=== PATIENT | female | born 2000 | race Caucasian/White ===

== ENCOUNTER → 2020-10-28 08:57 | Outpatient (BNVA) | payer OTHER, SELFPAY | PROVIDERS: Family Provider Pediatrics Adolescent Medicine; PCP Pediatrics Adolescent Medicine; Visit Provider Family Medicine | DX: Z20.828 Contact with and (suspected) exposure to other viral communicable diseases (principal) | CPT/HCPCS: 87635 ==

== ENCOUNTER → 2021-05-08 14:25 | Outpatient (BNVA) | payer OTHER, SELFPAY | PROVIDERS: Family Provider Pediatrics Adolescent Medicine; PCP Pediatrics Adolescent Medicine; Visit Provider Nurse Practitioner Women's Health | DX: N91.2 Amenorrhea, unspecified (principal); N91.1 Secondary amenorrhea | CPT/HCPCS: 84146; 84439; 84443; 84702 ==

== ENCOUNTER → 2021-05-20 10:11 | Outpatient (BNVA) | payer OTHER, SELFPAY | PROVIDERS: Family Provider Pediatrics Adolescent Medicine; PCP Pediatrics Adolescent Medicine; Visit Provider Nurse Practitioner Women's Health | DX: N91.2 Amenorrhea, unspecified (principal) | CPT/HCPCS: 76830 ==

== ENCOUNTER → 2021-09-02 15:00 | Outpatient (BNVA) | payer OTHER, SELFPAY | PROVIDERS: Family Provider Pediatrics Adolescent Medicine; PCP Pediatrics Adolescent Medicine; Visit Provider Nurse Practitioner Women's Health | DX: Z01.419 Encounter for gynecological examination (general) (routine) without abnormal findings (principal); N91.1 Secondary amenorrhea; Z30.41 Encounter for surveillance of contraceptive pills | CPT/HCPCS: 88175 ==

== ENCOUNTER 2024-01-15 14:27 | Outpatient (CLI) | payer OTHER, BC, MEDICAID, SELFPAY ==
[2024-01-15 14:32] VITALS: BP 115/58; PULSE 68; TEMP 35.8
[2024-01-15 14:40] VITALS: RESP 16; BMI 32.9
[2024-01-15 14:50] VITALS: BP 115/58; RESP 16
== END 2024-01-15 15:00 | disposition home or self-care (01) ==
LOC: OPOB 14:28 → OBGYN 14:28
PROVIDERS: PCP Pediatrics Adolescent Medicine; Visit Provider Family Medicine
DX: O26.899 Other specified pregnancy related conditions, unspecified trimester (principal); Z3A.00 Weeks of gestation of pregnancy not specified; R10.9 Unspecified abdominal pain
CPT/HCPCS: 99211

== ENCOUNTER 2024-03-28 21:26 | Outpatient (CLI) | payer OTHER, BC, MEDICAID, SELFPAY ==
[2024-03-28] VITALS (9 sets, daily range): BP systolic 113–141; BP diastolic 59–81; PULSE 69–86; RESP 18; O2SAT 97–99; BMI 28.7
--- NOTE | 2024-03-28 23:30 | PC.NURSE ---
During assessment of pt expressive aphasia was noted, so extremity strength and smile was assessed. Both were WNL. 03/28/24 @ [id number]
[2024-03-29 06:54] LABS: Glucose Point of Care 102 mg/dL (70-110)
== END 2024-03-28 22:14 | disposition home or self-care (01) ==
LOC: OPOB 21:27 → OBGYN 21:30
PROVIDERS: PCP Pediatrics Adolescent Medicine; Visit Provider Family Medicine
DX: O26.899 Other specified pregnancy related conditions, unspecified trimester (principal); Z3A.00 Weeks of gestation of pregnancy not specified; H53.8 Other visual disturbances
CPT/HCPCS: 36416; 59025; 82962; 99211

== ENCOUNTER 2024-03-28 22:15 | Emergency (ER) | payer OTHER, BC, MEDICAID, SELFPAY ==
[2024-03-28 22:17] VITALS: BP 147/87; PULSE 83; RESP 18; TEMP 36.7; O2SAT 99; BMI 28.7
--- NOTE | 2024-03-28 22:24 | ECG_ITS ---
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 Measurements Intervals [place] Rate: 72 P: 61 ND: 137 QRS: 64 QRSD: 78 T: -2 QT: 387 QTc: 425 Interpretive Statements SINUS RHYTHM NONSPECIFIC ST & T-WAVE ABNORMALITY No previous ECG available for comparison Electronically Signed On 03-29-2024 18:07:43 CDT by Francisca Medina M.D. [id number] f
--- NOTE | 2024-03-28 22:24 | CTR_ITS ---
PROCEDURE INFORMATION: Exam: CT Head Without Contrast Exam date and time: 03/28/2024 10:32 PM Age: 23 years old Clinical indication: Stroke-like symptoms; Headache and speech disturbance; Additional info: Symptoms of acute stroke TECHNIQUE: Imaging protocol: Computed tomography of the head without contrast. Radiation optimization: All CT scans at this facility use at least one of these dose optimization techniques: automated exposure control; mA and/or kV adjustment per patient size (includes targeted exams where dose is matched to clinical indication); or iterative reconstruction. Other technique: STROKE PROTOCOL was implemented. COMPARISON: No relevant prior studies available. RADIATION DOSE METRICS: Total DLP (mGy-cm): 955.4 FINDINGS: Brain: There is no acute intracranial hemorrhage or abnormal extra-axial fluid collection identified. There is no intracranial mass effect or shift of midline structures. The ortiz-white differentiation is preserved throughout. There is no sulcal effacement. The basilar cisterns are open. Cerebral ventricles: No hydrocephalus or ventricular effacement. Paranasal sinuses: A mucous retention cyst is seen in the right sphenoid sinus. No air-fluid levels. Mastoid air cells: There is no mastoid effusion detected. Bones: No calvarial fracture or destructive osseous lesions are seen. Soft tissues: Unremarkable. CT/CT head thrombolytic [id number] IMPRESSION: No acute intracranial pathology identified by CT. ASSESSMENT: ASPECTS ([place] Stroke Program Early CT Score) is 10.
--- NOTE | 2024-03-28 22:28 | ED_ITS ---
HPI - Neuro Symptoms/Deficit 2 General: Chief Complaint: Neuro Symptoms/Deficit Stated Complaint: stroke alert Time Seen by Provider: 03/28/24 22:21 History of Present Illness: Dr. Dickey called over there was about the patient, a code stroke was called before the patient arrived over here. When the patient arrived over here she stated that approximately 9:00 she had blurred vision difficulty finding her words. She denied any slurring of her speech or unilateral type neurologic deficit. Patient is G1, P0 at approximately [address] Dickey is her blood pressure was a little high while she was over in OB, her blood pressure upon arrival here is 147/87. Patient denies any medicine other than vitamins, she is allergic to amoxicillin, denies any medical illness, hospitalization, surgeries. Patient says she is 100% back to normal now currently. Patient said during this episode she had a headache for about 5 minutes but the headache is gone. Patient states she gets very rare to occasional headache when she is dehydrated. Patient was checked out in OB prior to her arrival here in the ER. Time: 21:00 Last Observed Normal: 21:00 Location: speech History of same: No Quality: improving Relieving factors: time Exacerbating factors: none Context: sudden onset On Anticoagulants: No Treatments Prior to Arrival: none Review of Systems 2 General: Reports: 10 or more systems reviewed and unremarkable except in HPI and below PFSH ED 2 PFSH: Medical History No pertinent past medical history Neg hx: HTN, DM, thyroid, DVT/PE PCP: none Surgical History No pertinent past surgical history Family History Family/Other Cancer Maternal great aunt--Breast cancer-- dx age unknown Diabetes Maternal great aunt Grandmother Diabetes Hypertension Grandfather Hypertension Denies family history of Hyperlipidemia Family history of premature coronary artery disease Stroke NIH stroke score 2 NIHSS: Level Of Consciousness - 1a: 0 Level Of Consciousness Questions - 1b: Both Correct Level Of Consciousness Commands - 1c: Both Correct Best Gaze - 2: Normal Visual Garcia - 3: No Visual Loss Facial Palsy - 4: N ormal Motor Arm Right - 5: No Drift Motor Arm Left - 5: No Drift Motor Leg Right - 6: No Drift Motor Leg Left - 6: No Drift Limb Ataxia - 7: A bsent Sensory - 8: Normal Best Language - 9: No Aphasia Dysarthia - 10: Normal Extinction And Inattention - 11: 0 Score: Total Score: 0 Physical Exam 2 Const: COMMON NORMALS: no acute distress, average body habitus, patient oriented x3, no limitations, healthy appearing, alert and well nourished HENMT: COMMON NORMALS: normocephalic, atraumatic, hearing grossly normal bilaterally, external ears normal, Normal external nose present, moist oral mucous membranes and oropharynx normal HEAD & SCALP: normocephalic and atraumatic NOSE: Normal external nose present EXTERNAL EAR: Yes external ears normal Eye: COMMON NORMALS: Equal, round and reactive pupils present, EOMs intact bilaterally, conjunctivae normal and no scleral icterus CONJUNCTIVA: Yes conjunctivae normal PUPIL: Yes Equal, round and reactive pupils present Neck/C-Spine: COMMON NORMALS: full ROM, no lymphadenopathy, supple, no meningeal signs (No focal neurologic deficits), no JVD and Thyroid normal T HYROID: Thyroid normal Chest: COMMONS NORMALS: normal inspection of the chest and normal palpation of entire chest wall Resp: COMMON NORMALS: normal respiratory effort, No retractions, No use of accessory muscles and clear to auscultation bilaterally AUSCULTATION: clear to auscultation bilaterally Cardio: COMMON NORMALS: no JVD, regular rate, regular rhythm, S1 normal heart sound present, S2 normal heart sound present, No gallops present (Cardio), No clicks present (Cardio), No murmurs present (Cardio) and No rub (Cardio) R ATE: regular rate RHYTHM: regular rhythm HEART SOUNDS: S1 normal heart sound present and S2 normal heart sound present GI: COMMON NORMALS: Normal to inspection, nondistended, normoactive bowel sounds present, Soft to palpation, non-tender, No hepatosplenomegaly present and no masses PALPATION: Yes Soft to palpation and Yes No hepatosplenomegaly present OTHER: Gravid Neuro: COMMON NORMALS: patient oriented x3 SENSORIUM/ORIENTATION: Yes alert MENINGEAL SIGNS: Yes no meningeal signs (No focal neurologic deficits) Course 2 Vital Signs: Vital signs: Vital Signs Temperature 98.1 F 03/28/24 22:17 Pulse Rate 83 03/28/24 22:17 Respiratory Rate 18 03/28/24 22:17 Blood Pressure 147/87 03/28/24 22:17 Pulse Oximetry 99 03/28/24 22:17 Oxygen Delivery Me thod Room Air 03/28/24 22:17 MDM - Neuro Symptoms/Deficit Medical Decision Making Dr. Elam notified and informed of patient and NIH of 0 we will go ahead with the workup and get a noncontrasted CT scan of her head and the blood work EKGs urine analysis. Anticipate discharge home patient lives here in [place] with short-term follow-up with Dr. Dickey patient has an appointment already scheduled in approximately 3 days for follow-up with Dr. Dickey. Lab work including blood, urinalysis, head CT, EKG were all discussed with the patient and is all essentially benign and did not show any acute cause of patient's symptomatology. It was discussed with the patient that if these return or she feels strange in any other way to come immediately back to the ER otherwise patient will be discharged home. Medical Records I reviewed the patient's medical records. Lab Data I reviewed the patient's lab results. 03/28/24 22:20 03/28/24 22:[address] 03/28/24 22:24 IMPRESSION: No acute intracranial pathology identified by CT. ASSESSMENT: ASPECTS ([place] Stroke Program Early CT Score) is 10. Laboratory Results WBC 10.22 10^3/uL (3.29-11.43) 03/28/24 22:20 RBC 4.19 10^6/uL (3.85-5.65) 03/28/24 22:20 Hgb 12.40 g/dL (11.27-16.99) 03/28/24 22:20 Hct 36.5 % (36-47) 03/28/24 22:20 MCV 87.1 fl (85-98) 03/28/24 22:20 MCH 29.6 pg (27-33) 03/28/24 22:20 MCHC 34.0 g/dL (30-55) 03/28/24 22:20 RDW 13.6 % (12.1-15.1) 03/28/24 22:20 Plt Count 230 10^3/cmm (157-399) 03/28/24 22:20 MPV 11.2 fL (7.4-10.4) H 03/28/24 22:20 Neut % (Auto) 63.3 % 03/28/24 22:20 Lymph % (Auto) 27.6 % 03/28/24 22:20 Crosby % (Auto) 8.0 % 03/28/24 22:20 Eos % (Auto) 0.5 % 03/28/24 22:20 Baso % (Auto) 0.2 % 03/28/24 22:20 Neut # (Auto) 6.47 10^3/uL (1.8-7.7) 03/28/24 22:20 Lymph # (Auto) 2.8 10^3/uL (0.8-4.8) 03/28/24 22:20 Crosby # (Auto) 0.8 10^3/uL (0.2-0.9) 03/28/24 22:20 Eos # (Auto) 0.1 10^3/uL (0.0-0.8) 03/28/24 22:20 Baso # (Auto) 0.0 10^3/uL (0.0-0.1) 03/28/24 22:20 Nucleated RBC % (auto) 0 % 03/28/24 22:20 Nucleated RBCs # 0.0 /100WBC 03/28/24 22:20 PT 12.20 SECONDS (12.1-14.9) 03/28/24 22:20 INR 0.88 (0.8-1.2) 03/28/24 22:20 APTT 25.6 SECONDS (23.9-36.7) 03/28/24 22:20 Sodium 136 mmol/L (136-145) 03/28/24 22:20 Potassium 4.0 mmol/L (3.5-5.1) 03/28/24 22:20 Chloride 105 mmol/L (98-107) 03/28/24 22:20 Carbon Dioxide 20 mmol/L (22-29) L 03/28/24 22:20 Anion Gap 15.0 (5-19) 03/28/24 22:20 BUN 8 mg/dL (6-20) 03/28/24 22:20 Creatinine 0.5 mg/dL (0.5-0.9) 03/28/24 22:20 GFR Calculation 152.9 mL/min (90-130) H 03/28/24 22:20 Glucose 99 mg/dL (65-115) 03/28/24 22:20 POC Glucose 93 mg/dL (70-110) 03/28/24 22:24 Calculated Osmolality 280 mOsm/kg (285-295) L 03/28/24 22:20 Calcium 8.5 mg/dL (8.5-10.5) 03/28/24 22:20 Magnesium 1.6 mg/dL (1.7-2.3) L 03/28/24 22:20 Total Bilirubin 0.2 mg/dL (0.15-1.2) 03/28/24 22:20 AST 14 U/L (0-32) 03/28/24 22:20 ALT 9 U/L (0-33) 03/28/24 22:20 Alkaline Phosphatase 101 U/L (35-105) 03/28/24 22:20 Total Protein 6.5 g/dL (6.6-8.7) L 03/28/24 22:20 Albumin 3.1 g/dL (3.5-5.2) L 03/28/24 22:20 Globulin 3.4 g/dL (1.3-4.6) 03/28/24 22:20 Urine Color Yellow (Yellow) 03/28/24 22:00 Urine Appearance Sl cloudy (CLEAR) A 03/28/24 22:00 Urine pH 6 (5-7) 03/28/24 22:00 Ur Specific [place] 1.025 (1.005-1.030) 03/28/24 22:00 Urine Protein Neg (Negative) 03/28/24 22:00 Urine Glucose (UA) Norm (Normal) 03/28/24 22:00 Urine Ketones Negative (Negative) 03/28/24 22:00 Urine Blood Neg (Negative) 03/28/24 22:00 Urine Nitrate Negative (Negative) 03/28/24 22:00 Urine Bilirubin Neg (Negative) 03/28/24 22:00 Urine Urobilinogen Neg mg/dL (Negative) 03/28/24 22:00 Ur Leukocyte Esterase Trace (Negative) H 03/28/24 22:00 Urine RBC 0-4 /hpf (0-2) H 05/21/24 22:00 Urine WBC 5-10 /hpf (0-5) H 03/28/24 22:00 Ur Squamous Epith Cells 10-15 /hpf (0-5) H 03/28/24 22:00 Amorphous Sediment Not Reportable 03/28/24 22:00 Urine Bacteria 2+ /hpf (NONE) H 03/28/24 22:00 Urine Mucus 3+ /hpf 03/28/24 22:00 Urine Opiates Screen Negative ng/mL (Negative) 03/28/24 22:00 Ur Barbiturates Screen Negative ng/mL (Negative) 03/28/24 22:00 Ur Phencyclidine Scrn Negative ng/mL (Negative) 03/28/24 22:00 Ur Amphetamines Screen Negative ng/mL (Negative) 03/28/24 22:00 U Benzodiazepines Scrn Negative ng/mL (Negative) 03/28/24 22:00 Urine Cocaine Screen Negative ng/mL (Negative) 03/28/24 22:00 U Marijuana (THC) Screen Negative ng/mL (Negative) 03/28/24 22:00 Ethyl Alcohol < 10 mg/dL (0-10) 03/28/24 22:20 All radiology interpretation(s) finalized by discharge Discharge Plan Discharge Patient Disposition: Home Clinical Impression: 34 weeks gestation of Condition: Stable Prescriptions: No Action PNV cmb#95-ferrous fumarate-FA [] 28 mg iron- 800 mcg Tablet 1 tab PO ONCE Discharge Orders: Discharge ED (Routine); Ordered 03/28/24 Ordered By: Francisco Campos Referrals: Rm Dickey MD [Primary Care Provider] - 1-3 days Patient Instructions: (ED) Activity Restrictions/Additional Instructions: Physical exam and evaluation performed on you in the ER that included blood work, urinalysis, EKG, head CT all did not show any abnormality that would but would be consistent in providing reason for your symptomatology. Please keep your appointment for short-term follow-up with Dr. Dickey. If the symptoms return or you feel weird in any other way please feel free to return to the ER for further evaluation. Thank you for choosing [facility] for your healthcare needs today. Please realize that you were seen in the emergency department and that we are providing you with an emergency medical screening exam and this may not be a complete and all exclusive of all testing and/or medical workup we may need to determine your element or severity of your illness. It is very important that you follow-up as instructed with your primary care provider or specialist for the additional evaluation and to discuss your medical treatment plan. You may return to the emergency department should you have concerns or if your condition changes or worsens in any way. 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
[2024-03-28 22:31] LABS: Basophils % 0.2 %; Eosinophils # 0.1 10^3/uL (0.0-0.8); Eosinophils % 0.5 %; Hematocrit 36.5 % (36-47); Lymphocytes # 2.8 10^3/uL (0.8-4.8); Lymphocytes % 27.6 %; Mean Corpuscular Hemoglobin 29.6 pg (27-33); Mean Corpuscular Volume 87.1 fl (85-98); Mean Platelet Volume 11.2 fL (7.4-10.4); Monocytes # 0.8 10^3/uL (0.2-0.9); Neutrophils # 6.47 10^3/uL (1.8-7.7); Neutrophils % 63.3 %; Nucleated Red Blood Cells % 0 %; Platelet Count 230 10^3/cmm (157-399); Red Blood Count 4.19 10^6/uL (3.85-5.65); Red Cell Distribution Width 13.6 % (12.1-15.1); White Blood Count 10.22 10^3/uL (3.29-11.43)
[2024-03-28 22:31] LABS: Glucose Point of Care 93 mg/dL (70-110)
[2024-03-28 22:44] LABS: Alanine Aminotransferase 9 U/L (0-33); Albumin Level 3.1 g/dL (3.5-5.2); Alkaline Phosphatase 101 U/L (35-105); Aspartate Amino Transferase 14 U/L (0-32); Blood Urea Nitrogen 8 mg/dL (6-20); Calcium 8.5 mg/dL (8.5-10.5); Carbon Dioxide 20 mmol/L (22-29); Chloride 105 mmol/L (98-107); Creatinine Clr Calc Pharmacy 161.7322; Globulin 3.4 g/dL (1.3-4.6); Glomerular Filtration Rate 152.9 mL/min (90-130); Glucose 99 mg/dL (65-115); Magnesium 1.6 mg/dL (1.7-2.3); Osmolality Calculated 280 mOsm/kg (285-295); Sodium 136 mmol/L (136-145); Total Bilirubin 0.2 mg/dL (0.15-1.2); Total Protein 6.5 g/dL (6.6-8.7)
[2024-03-28 22:45] LABS: INR 0.88 (0.8-1.2); Partial Thromboplastin Time 25.6 SECONDS (23.9-36.7)
[2024-03-28 22:53] VITALS: BP 109/66; PULSE 73; RESP 15; O2SAT 95
[2024-03-28 22:59] LABS: Alcohol Level < 10 mg/dL (0-10)
[2024-03-28 23:00] LABS: Urine Color Yellow (Yellow)
[2024-03-28 23:01] LABS: Add Urine Culture? No; Add Urine Microscopic? YES; Bacteria Urine 2+ /hpf; Bilirubin Urine Neg (Negative); Blood Urine Neg (Negative); Glucose Urine UA Norm (Normal); Ketones Urine Negative (Negative); Leukocyte Esterase Urine Trace (Negative); Mucus Urine 3+ /hpf; Nitrate Urine Negative (Negative); Protein Urine Neg (Negative); RBC Urine 0-4 /hpf (0-2); Specific Gravity, Urine 1.025 (1.005-1.030); Urobilinogen Urine Neg (Negative); pH Urine 6 (5-7)
[2024-03-28 23:09] LABS: Amphetamines Screen Urine Negative (Negative); Barbiturates Screen Urine Negative (Negative); Benzodiazepines Screen Urine Negative (Negative); Cocaine Screen Urine Negative (Negative); Opiate Screen Urine Negative (Negative); PCP Screen Urine Negative (Negative); THC Screen Urine Negative (Negative)
[2024-03-28 23:23] VITALS: BP 112/65; PULSE 75; RESP 17; O2SAT 99
[2024-03-29 00:01] VITALS: BP 115/70; PULSE 77; RESP 14; O2SAT 99
== END 2024-03-29 00:01 | disposition home or self-care (01) ==
PROVIDERS: Emergency Provider Emergency Medicine; PCP Family Medicine
DX: O99.891 Other specified diseases and conditions complicating pregnancy (principal); H53.8 Other visual disturbances; Z3A.34 34 weeks gestation of pregnancy
CPT/HCPCS: 36416; 70450; 80053; 80306; 80307; 81001; 82962; 83735; 85025; 85610; 85730; 93005; 99284

== ENCOUNTER 2024-05-11 10:15 | Outpatient (CLI) | payer OTHER, BC, MEDICAID, SELFPAY ==
[2024-05-11 10:10] VITALS: BMI 29.0
[2024-05-11 10:26] VITALS: BP 142/79; PULSE 75
[2024-05-11 10:47] VITALS: BP 117/68; PULSE 65
[2024-05-11 14:36] LABS: Nitrazine Paper, PH Negative
== END 2024-05-11 11:10 | disposition home or self-care (01) ==
LOC: OPOB 10:15 → OBGYN 10:16
PROVIDERS: PCP Family Medicine; Visit Provider Family Medicine
DX: O26.899 Other specified pregnancy related conditions, unspecified trimester (principal); Z3A.00 Weeks of gestation of pregnancy not specified; N89.8 Other specified noninflammatory disorders of vagina
CPT/HCPCS: 59025; 83986; 99211

== ENCOUNTER 2024-05-12 01:14 | Inpatient (IN) | payer OTHER, BC, MEDICAID, SELFPAY ==
[2024-05-12] VITALS (51 sets, daily range): BP systolic 95–182; BP diastolic 51–134; PULSE 47–171; RESP 16; TEMP 36–37.6; O2SAT 93–98
[2024-05-12 01:32] LABS: Basophils % 0.3 %; Eosinophils % 0.1 %; Hematocrit 40.4 % (36-47); Lymphocytes # 1.6 10^3/uL (0.8-4.8); Lymphocytes % 10.3 %; Mean Corpuscular HGB Conc 34.2 g/dL (30-55); Mean Corpuscular Hemoglobin 29.1 pg (27-33); Mean Corpuscular Volume 85.1 fl (85-98); Mean Platelet Volume 12.4 fL (7.4-10.4); Monocytes # 0.7 10^3/uL (0.2-0.9); Monocytes % 4.4 %; Neutrophils # 13.11 10^3/uL (1.8-7.7); Neutrophils % 84.5 %; Nucleated Red Blood Cells % 0 %; Platelet Count 247 10^3/cmm (157-399); Red Blood Count 4.75 10^6/uL (3.85-5.65); Red Cell Distribution Width 14.2 % (12.1-15.1); White Blood Count 15.52 10^3/uL (3.29-11.43)
[2024-05-12] MEDS: lactated ringers 1,000 ML 999 ML IV ×2 (01:38→02:40)
[2024-05-12] MEDS: ROPivacaine syringe 100 MG/50 ML SYRINGE 13 MG EPIDURAL ×2 (02:55→05:45)
--- NOTE | 2024-05-12 02:56 | P.ANESASSM_ITS ---
Pre-Anesthetic Assessment Height/Weight: Height 1.57 m Pulse BP Pulse Ox 83 148/65 97 05/12/24 02:51 05/12/24 02:51 05/12/24 02:48 Epidural Familial anesthetic complications: None Was Beta Jahaira taken within 24 hours: N/A Was Clonidine taken within 24 hours: N/A Last intake: Solids 1500, fluid midnight Social No alcohol and No tobacco Exam alert, oriented x 3, clear to auscultation bilaterally and regular rate & rhythm Airway Submandibular: within normal limits Cervical ROM: within normal limits Mallampati: Class II Dentition: full Comments: Comments: Back left broken tooth History/ROS No significant history except as noted and No significant complaints Pulmonary None reported CV/HEM Anemia None reported Hepatic None reported GI Gastroesophageal Reflux Disease Metabolic None reported Musc/skel None reported Neuropsych Anxiety Anesthetic Plan ASA status: 2 Anesthesia: Anesthesia Evaluation, General and Regional (specify below) (Epidural) Risk of > 500 ml blood loss (7ml/kg in children): Yes, adequate IV access and fluids planned Medications/Allergies Home Medications Medication Instructions Recorded Confirmed Last Taken Type vit no.95-ferrous 1 tab PO ONCE 01/15/24 03/28/24 05/10/24 08:00 History fumarate 28 mg-folic acid 800 mcg tablet () Allergies Allergy/AdvReac Type Severity Reaction Status Date / Time amoxicillin Allergy anaphylaxis Verified 03/28/24 22:23 Current Medications Generic Name Dose Route Start Last Admin Trade Name Freq PRN Reason Stop Dose Admin Lactated Ringer's 1,000 mls @ 999 mls/hr 05/12/24 01:17 05/12/24 01:38 Lactated Ringers IV 999 mls/hr .Q1H1M PRN Administration See label comments PFSH Anesthesia Medical History No pertinent past medical history Neg hx: HTN, DM, thyroid, DVT/PE PCP: none Surgical History No pertinent past surgical history Family History Family/Other Cancer Maternal great aunt--Breast cancer-- dx age unknown Diabetes Maternal great aunt Grandmother Diabetes Hypertension Grandfather Hypertension Denies family history of Hyperlipidemia Family history of premature coronary artery disease Stroke Data Anesthesia 05/12/24 01:12 Short CBC 05/12/24 Range/Units 01:12 WBC 15.52 H (3.29-11.43) 10^3/uL Hgb 13.80 (11.27-16.99) g/dL Hct 40.4 (36-47) % MCV 85.1 (85-98) fl Plt Count 247 (157-399) 10^3/cmm Neut % (Auto) 84.5 % Neut # (Auto) 13.11 H (1.8-7.7) 10^3/uL Cardiac Studies: 2 No Data to Display
--- NOTE | 2024-05-12 03:02 | ANES.PROC ---
Anesthesia Procedures Procedure/Date: 05/12/24 Epidural: Time Out Performed: Yes Consents Signed: Procedure Consent and NPO Consent Consent: requested by attending/covering physician, from patient, risks and benefits reviewed and patient agrees to proceed Lumbar Level: L3-L4 Epidural position: sitting Epidural procedure: sterile prep of area (betadine), 1% lidocaine to numb the area (3 mLs), neg for paresthesia, test dose given, 1.5% xylocaine 1:200k epi (3 mLs/ 2 mLs), 0.2% Ropivacaine bolus ml (5 mLs), placed PCEA, no systemic response, sterile dressing applied, L.U.D. no apparent complications and 0.2% Ropiavacaine @ mls/hr (13) Additional Comments: Attempt x1. VALERIA 5.5cm, catheter threaded to 11cm. Negative CSF aspiration before and after test dose and start of infusion. Patient tolerated well. Patient educated on [employer] button.
[2024-05-12] MEDS: dextrose 5%-lactated ringers 1,000 ML 125 ML IV (04:30)
[2024-05-12] MEDS: ondansetron 2 mg/ML SDV 2 mL 4 MG IVP (05:50)
[2024-05-12] MEDS: oxytocin 30 UNIT/500 ML BAG 600 UNIT IV (08:08)
--- NOTE | 2024-05-12 08:28 | PM.OPHPUD ---
Labor & Delivery H&P Update Date of Procedure: May 12, 2024 Date H&P Performed: 05/12/24 Admission Diagnosis: IUP at 40 weeks 5 days gestation Active labor Planned procedure: Expectant management of labor and delivery
--- NOTE | 2024-05-12 08:30 | PM.DELIVERY ---
Delivery Note: Date of delivery: May 12, 2024 Procedure: Normal spontaneous vaginal delivery Estimated blood loss (mL): 150 Pre-Delivery Course: The patient had routine care at [facility] with Dr. Dickey labs: Blood type a positive antibody negative, hepatitis B nonreactive, RPR nonreactive, rubella immune, GC chlamydia negative, Q alexia low risk, glucose tolerance test 97, GBS negative Delivery: This is a 24-year-old G1, P0 at 40 weeks 5 days gestation who presented to labor and delivery in active labor. She had spontaneous rupture of membranes with particulate meconium. She received an epidural for pain management. Her labor progressed well on its own. She had to push for quite a while but had a normal spontaneous vaginal delivery of a viable female in ROP position. The infant was bulb suctioned through the mouth and naris at delivery. She weighed 2260 g, 5 pounds 0 ounces, Apgars 9 and 9. She was delivered over an intact perineum but there was a subsequent second-degree vaginal laceration that was sutured using 3-0 chromic. Mother and infant were doing well after delivery. History History History 0 Term Miscarriages/Ectopic Living Children A&P Assessment and plan (1) (normal spontaneous vaginal delivery): Coding Level of Care Code Acute Code for Chg Fwd Diagnoses (normal spontaneous vaginal delivery) O80
[2024-05-12] MEDS: ibuprofen 800 mg tablet PO ×3 (10:41→21:17)
[2024-05-12] MEDS: docusate sodium 100 mg Capsule PO ×2 (10:41→18:03)
[2024-05-12] MEDS: lanolin oint 7 gm 1 APPLIC TOPICAL (10:42)
[2024-05-12] MEDS: PRENATAL VIT NO.130/IRON/FOLIC 1 EACH TABLET PO (10:42)
[2024-05-12] MEDS: benzocaine-menthol 78 gm Canister 1 SPRAY TOPICAL (10:46)
[2024-05-12] MEDS: acetaminophen 325 mg Tablet 650 MG PO (18:08)
[2024-05-12 22:01] LABS: Hematocrit 35.3 % (36-47); Mean Corpuscular HGB Conc 33.4 g/dL (30-55); Mean Corpuscular Hemoglobin 29.4 pg (27-33); Mean Corpuscular Volume 87.8 fl (85-98); Mean Platelet Volume 12.2 fL (7.4-10.4); Platelet Count 199 10^3/cmm (157-399); Red Blood Count 4.02 10^6/uL (3.85-5.65); Red Cell Distribution Width 14.5 % (12.1-15.1); White Blood Count 20.33 10^3/uL (3.29-11.43)
[2024-05-13 05:25] VITALS: BP 107/68; PULSE 69; RESP 16; TEMP 36.7; O2SAT 98
--- NOTE | 2024-05-13 08:00 | ANE.PACU2 ---
Inpatient post-anesthesia follow up: Airway intact: Yes Vital signs: Temperature 98.3 F Pulse Rate 81 Respiratory Rate 16 Blood Pressure 121/68 Pulse Oximetry 97 Oxygen Delivery Me thod Room Air Oxygen Flow Rate Fraction of Inspir ed Oxygen Hydration adequate: Yes Nausea and vomiting: No Pain level: 1 Mental status: Baseline Epidural Start/End: Epidural Start Date: 05/12/24 Epidural Start Time: 02:35 Epidural End Date: 05/12/24 Epidural End Time: 13:20
[2024-05-13] MEDS: docusate sodium 100 mg Capsule PO (08:19)
[2024-05-13] MEDS: ibuprofen 800 mg tablet PO (08:19)
[2024-05-13] MEDS: PRENATAL VIT NO.130/IRON/FOLIC 1 EACH TABLET PO (08:19)
[2024-05-13 09:35] VITALS: BP 110/67; PULSE 77; RESP 16; TEMP 36.9; O2SAT 97
--- NOTE | 2024-05-13 11:05 | P.DS_ITS ---
Discharge Providers Date of Admission: 05/12/24 01:14 Date of Discharge: May 13, 2024 Attending Provider at Admission: Barbara Maddox MD Attending Provider at Discharge: Barbara Maddox MD Primary Care Provider: Rm Dickey MD Diagnoses at Discharge Discharge Diagnosis (1) (normal spontaneous vaginal delivery): Status: Acute Reason for Visit Reason for Visit: contractions Hospital Course Hospital Course This is a 24-year-old G1 now P1 who was admitted in active labor at 40 weeks gestation. She had a normal spontaneous vaginal delivery of a viable female . Mother and infant have done well . Mother states that her bleeding has decreased significantly, she has some vaginal soreness and tailbone soreness but is otherwise doing well and is requesting discharge home. Physical Exam Narrative: Alert and oriented, walking around the room, heart regular rate and rhythm, lungs clear to auscultation bilaterally, abdomen is soft and nontender, fundus is firm, extremities have no edema and no calf tenderness. Discharge Data Studies Completed and Pending Laboratory Results WBC 20.33 10^3/uL (3.29-11.43) H 05/12/24 21:27 RBC 4.02 10^6/uL (3.85-5.65) 05/12/24 21: Hgb 11.80 g/dL (11.27-16.99) 05/12/24 21: Hct 35.3 % (36-47) L 05/12/24 21: MCV 87.8 fl (85-98) 05/12/24 21: MCH 29.4 pg (27-33) 05/12/24 21: MCHC 33.4 g/dL (30-55) 05/12/24 21:27 RDW 14.5 % (12.1-15.1) 05/12/24 21: Plt Count 199 10^3/cmm (157-399) 05/12/24 21: MPV 12.2 fL (7.4-10.4) H 05/12/24 21:27 Neut % (Auto) 84.5 % 05/12/24 01:12 Lymph % (Auto) 10.3 % 05/12/24 01:12 Prentiss % (Auto) 4.4 % 05/12/24 01:12 Eos % (Auto) 0.1 % 05/12/24 01:12 Baso % (Auto) 0.3 % 05/12/24 01:12 Neut # (Auto) 13.11 10^3/uL (1.8-7.7) H 05/12/24 01:12 Lymph # (Auto) 1.6 10^3/uL (0.8-4.8) 05/12/24 01:12 Prentiss # (Auto) 0.7 10^3/uL (0.2-0.9) 05/12/24 01:12 Eos # (Auto) 0.0 10^3/uL (0.0-0.8) 05/12/24 01:12 Baso # (Auto) 0.0 10^3/uL (0.0-0.1) 05/12/24 01:12 Nucleated RBC % (auto) 0 % 05/12/24 01:12 Nucleated RBCs # 0.0 /100WBC 05/12/24 01:12 Blood Type A Positive 05/12/24 01:12 Rho(D) Type Rh positive 05/12/24 01:12 Antibody Screen Negative 05/12/24 01:12 Vitals Last Vital Signs Temp 98.1 F 05/13/24 05:25 Pulse 69 05/13/24 05:25 Resp 16 05/13/24 05:25 BP 107/68 05/13/24 05:25 Pulse Ox 98 05/13/24 05:25 O2 Del Method Room Air 05/13/24 05:25 Discharge Plan Discharge Patient Disposition: Home Condition: Stable Prescriptions: Continued PNV cmb#95-ferrous fumarate-FA [] 28 mg iron- 800 mcg Tablet 1 tab PO ONCE Discharge Orders: Discharge Order (Routine); Ordered 05/13/24 Ordered By: Barbara Maddox Referrals: Rm Dickey MD [Primary Care Provider] - 06/19/24 11:50 am Discharge Diet: Usual diet Discharge Activity: Limit activity as instructed Patient Instructions: Depression (DC), Opioid Safety (DC), Preeclampsia and Eclampsia After Delivery (GEN), Hemorrhage (DC), OB Discharge Report, OB Food/Drug Interaction Guide, OB Care at Home, Opioid Safety, OB Vaginal Deliveries, Abnormal Bleeding Discharge Attestations Time Spent in Discharge Care*: less than 30 min Quality Metrics Clinical Quality Measures [ No reported AMI, CVA or VTE this stay] Coding Level of Care Code Acute Code for Chg Fwd Diagnoses (normal spontaneous vaginal delivery) O80
[2024-05-13 12:03] VITALS: BP 121/68; PULSE 81; RESP 16; TEMP 36.8; O2SAT 97
[2024-05-13 12:26] VITALS: BP 121/68; PULSE 81; RESP 16; TEMP 36.8; O2SAT 97
== END 2024-05-13 12:26 | disposition home or self-care (01) | DRG 807 ==
LOC: OBGYN 02:25
PROVIDERS: Admitting Provider Family Medicine; PCP Family Medicine; Visit Provider Family Medicine
DX: O48.0 Post-term pregnancy (principal); Z37.0 Single live birth; Z3A.40 40 weeks gestation of pregnancy; O77.0 Labor and delivery complicated by meconium in amniotic fluid; O70.1 Second degree perineal laceration during delivery
CPT/HCPCS: 36415; 59025; 59409; 85025; 85027; 86850; 86900; 96374; 99211; J2405; J2590; J2795; J7120; J7121